=== PATIENT | female | born 1940 | race Hispanic/Latino ===

== ENCOUNTER 2022-09-26 11:39 | Emergency (ER) | payer MEDICARE, MEDICAID ==
[~2022-09-26] VITALS: Ht 157.5 cm; Wt 71.0 kg
[~2022-09-26 11:39] MED LIST: LIPITOR10 MG PO; METFORMIN850 MG PO; NAPROSYN500 MG PO
[2022-09-26 11:55] VITALS: BP 143/50
[2022-09-26 12:00] VITALS: BP 130/57
[2022-09-26 12:30] VITALS: BP 125/45
[2022-09-26 13:00] VITALS: BP 128/49
[2022-09-26 13:11] VITALS: BP 128/49
== END 2022-09-26 13:23 | disposition home or self-care (01) ==
LOC: ED 11:39
DX: S52.501A Unspecified fracture of the lower end of right radius, initial encounter for closed fracture (principal); M25.521 Pain in right elbow; R07.81 Pleurodynia; I10 Essential (primary) hypertension; E11.9 Type 2 diabetes mellitus without complications; W19.XXXA Unspecified fall, initial encounter; Z79.84 Long term (current) use of oral hypoglycemic drugs